=== PATIENT | female | born 1950 | race Caucasian/White ===

== ENCOUNTER 2019-03-11 12:26 | Emergency (ER) | payer BC | END 2019-03-11 14:21 | disposition home or self-care (01) | LOC: FTE 12:26 | DX: S49.92XA Unspecified injury of left shoulder and upper arm, initial encounter (principal); W01.0XXA Fall on same level from slipping, tripping and stumbling without subsequent striking against object, initial encounter; Y92.9 Unspecified place or not applicable | CPT/HCPCS: 73030; 73080-LT; 99283-25 ==